=== PATIENT | female | born 1975 | race Caucasian/White ===

== ENCOUNTER 2021-04-25 00:09 | Emergency (ER) | payer MEDICAID ==
[~2021-04-25] VITALS: Ht 167.6 cm; Wt 62.7 kg
[2021-04-25 00:15] VITALS: BP 121/87
== END 2021-04-25 01:00 ==
LOC: ER 00:10
DX: Z04.1 Encounter for examination and observation following transport accident (principal); V87.7XXA Person injured in collision between other specified motor vehicles (traffic), initial encounter; Y93.89 Activity, other specified; Y92.89 Other specified places as the place of occurrence of the external cause; Y99.8 Other external cause status
CPT/HCPCS: 99283

== ENCOUNTER 2021-04-26 11:37 | Emergency (ER) | payer MEDICAID ==
[~2021-04-26] VITALS: Ht 167.6 cm; Wt 61.4 kg
[2021-04-26] MEDS ORDERED: morphine 4 MG/ML inj SYRINge IV ONE ×3 (12:15→16:10)
[2021-04-26 12:48] LABS: BASOPHILS # (AUTO) 0.1 X10'3 (0-0.2); BASOPHILS % (AUTO) 0.5 % (0-1); EOSINOPHILS % (AUTO) 0.4 % (0-6); HEMATOCRIT 40.9 % (35.0-45.0); HEMOGLOBIN 13.8 g/dl (12.0-16.0); LYMPHOCYTES # (AUTO) 1.5 X10'3 (1.1-4.8); LYMPHOCYTES % (AUTO) 12.1 % (21-51); MEAN CORPUSCULAR HEMOGLOBIN 30.2 PG (27.0-31.0); MEAN CORPUSCULAR HGB CONC 33.8 g/dL (33.0-36.5); MEAN CORPUSCULAR VOLUME 89.4 FL (78-98); MEAN PLATELET VOLUME 7.3 FL (7.4-10.4); MONOCYTES # (AUTO) 1.1 X10'3 (0-0.9); MONOCYTES % (AUTO) 9.2 % (2-12); NEUTROPHILS # (AUTO) 9.4 X10'3 (1.8-7.7); NEUTROPHILS % (AUTO) 77.8 % (42-75); PLATELET COUNT 202 X10'3 (140-440); RED BLOOD COUNT 4.58 X10'6 (4.20-5.60); RED CELL DISTRIBUTION WIDTH 14.1 % (11.5-14.5)
[2021-04-26 12:59] LABS: ALANINE AMINOTRANSFERASE 54 U/L (12-78); ALBUMIN 3.9 G/DL (3.4-5.0); ALBUMIN/GLOBULIN RATIO 1.1 (1.1-1.5); ALKALINE PHOSPHATASE 88 IU/L (46-116); ANION GAP 9 (8-16); ASPARTATE AMINO TRANSFERASE 61 U/L (10-37); BILIRUBIN,TOTAL 0.8 MG/DL (0.1-1.0); BLOOD UREA NITROGEN 11 MG/DL (7-18); BUN/CREATININE RATIO 17.7 (6.6-38.0); CHLORIDE 105 MMOL/L (99-107); CREATININE 0.62 MG/DL (0.40-0.90); GLUCOSE 113 MG/DL (70-104); SODIUM 143 MMOL/L (135-145); TOTAL CARBON DIOXIDE 28.7 MMOL/L (24-32); TOTAL PROTEIN 7.6 G/DL (6.4-8.2); eGFR > 90 ML/MIN
[2021-04-26] MEDS ORDERED: iohexol 300mg/ml 100ml inj. ONE (13:04)
[2021-04-26] MEDS ORDERED: ondansetron/PF 4mg/2ml inj IV ONE ×2 (13:55→16:10)
[2021-04-26 15:02] LABS: APTT 27 SECONDS (22-32)
[2021-04-26] MEDS ORDERED: bacitracin 15gm ointment TP ONE (16:10)
[2021-04-26] MEDS ORDERED: diphenhydrAMINE 50 mg/ml inj IV ONE (17:10)
[2021-04-26] MEDS ORDERED: proCHLORperazine 10 MG/2 ml inj IV ONE (17:10)
[2021-04-26 17:21] VITALS: BP 118/75
== END 2021-04-26 18:51 | disposition short-term general hospital (02) ==
LOC: ER 11:38
DX: S32.15XA Type 2 fracture of sacrum, initial encounter for closed fracture (principal); S32.029A Unspecified fracture of second lumbar vertebra, initial encounter for closed fracture; S32.059A Unspecified fracture of fifth lumbar vertebra, initial encounter for closed fracture; S12.530A Unspecified traumatic displaced spondylolisthesis of sixth cervical vertebra, initial encounter for closed fracture; S60.811A Abrasion of right wrist, initial encounter; Z20.822 Contact with and (suspected) exposure to COVID-19; R10.9 Unspecified abdominal pain; R42 Dizziness and giddiness; R11.0 Nausea; R07.81 Pleurodynia; R07.89 Other chest pain; M54.2 Cervicalgia; V87.7XXA Person injured in collision between other specified motor vehicles (traffic), initial encounter; Y93.89 Activity, other specified; Y92.89 Other specified places as the place of occurrence of the external cause; Y99.8 Other external cause status
CPT/HCPCS: 36415; 70450; 71260; 72125; 73110; 74177; 80053; 85025; 85610; 85730; 86885; 86900; 86901; 87635; 93005; 96374; 96375; 96376; 99285; C9803; J0780; J1200; J2270; J2405; Q9967